=== PATIENT | female | born 1995 | race Hispanic/Latino ===

== ENCOUNTER 2019-04-06 20:13 | Emergency (ER) | payer OTHER ==
[2019-04-06] MEDS ORDERED: KETOROLAC TROMETHAMINE 30MG/ML ONE (20:57)
== END 2019-04-06 22:39 | disposition home or self-care (01) ==
LOC: EDH 20:13
DX: R07.89 Other chest pain (principal); M62.838 Other muscle spasm
CPT/HCPCS: 71046; 81025; 93005; 96374; 99285; J1885